=== PATIENT | female | born 1980 | race Caucasian/White ===

== ENCOUNTER 2020-12-30 13:19 | Outpatient (CLI) | payer OTHER, SELFPAY ==
--- NOTE | ~2020-12-30 | MMUS_ITS ---
EXAMINATION: MM diagnostic bib BI w magnolia, US breast BI limited HISTORY: Palpable lumps in the upper outer quadrant of the right breast and at the 10:00 and 2:00 loc ations of the left breast TECHNIQUE: Craniocaudal, mediolateral, and mediolateral oblique 3-D tomosynthesis images of the richard ts were performed and synthetic 2-D images were generated. CAD analysis was submitted and interpreted . High resolution limited bilateral breast ultrasound was performed. COMPARISON: 11/08/2014, 11/01/2011 BREAST PARENCHYMAL COMPOSITION: The breasts are heterogeneously dense, which may obscure small masses . FINDINGS: MAMMOGRAPHIC FINDINGS: Right breast: There appear to be obscured equal density masses measuring up to 2.5 cm in the middle t hird of the outer breast at the 9:00 location area of palpable abnormality. No suspicious calcificati on or architectural distortion is identified. Left breast: There is an approximately 7 mm oval, obscured, equal density mass in the middle third of the breast at the 2:00 location approximately 6 cm from the nipple in the region of palpable concern . No definite mass is identified in the medial breast. ULTRASOUND: Right breast: There is an approximately 2.5 x 1.5 cm cluster of microcysts at the 9:00 location the a aleksander of palpable concern. An adjacent 7 mm cyst is noted. There is a 9 mm x 5 mm cyst with internal se ptations at the 10:00 location 4 cm from the nipple. No suspicious cystic or solid mass is identified . Left breast: There is an approximately 2.1 x 0.5 cm cluster of microcysts at the 2:00 location 4 cm f rom the nipple. A 9 mm x 6 mm cluster of microcysts is present at the 1:00 location. A 6 mm x 4 mm co mplex cyst is present at the 10:00 location 3 cm from the nipple which demonstrates no posterior feat ures or internal vascularity. Multiple cysts are identified near the nipple which measure up to 6 mm. IMPRESSION: 1. No mammographic or sonographic evidence of malignancy. 2. Recommend routine screening mammography in one year. BI-RADS Category 2: Benign finding(s). Reviewed, dictated and finalized at location A. [facility] [employer] IMPRESSION: 1. No mammographic or sonographic evidence of malignancy. 2. Recommend routine screening mammography in one year. BI-RADS Category 2: Benign finding(s).
== END 2020-12-30 13:20 | disposition home or self-care (01) ==
LOC: ANHIMG 13:24
PROVIDERS: Visit Provider Advanced Practice Midwife
DX: N63.10 Unspecified lump in the right breast, unspecified quadrant (principal); N63.20 Unspecified lump in the left breast, unspecified quadrant
CPT/HCPCS: 76642; 77062; 77066; G0279